=== PATIENT | female | born 2000 | race American Indian/Alaskan Native ===

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

== ENCOUNTER 2020-10-01 12:13 | Emergency (ER) | payer MEDICAID ==
[2020-10-01 12:31] VITALS: BP 128/66; PULSE 88
[2020-10-01] MEDS ORDERED: cefTRIAXone 500 MG, Lidocaine 1% 1 ML IM ONE ×2 (12:38)
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
== END 2020-10-01 12:57 | disposition home or self-care (01) ==
LOC: DL.ED 12:13
DX: O23.11 Infections of bladder in pregnancy, first trimester (principal); Z11.3 Encounter for screening for infections with a predominantly sexual mode of transmission; Z3A.01 Less than 8 weeks gestation of pregnancy
CPT/HCPCS: 81001; 81025; 87086; 87088; 87186; 87491; 87563; 87591; 96372; 99284; J0696

== ENCOUNTER 2020-12-06 02:36 | Emergency (ER) | payer MEDICAID ==
[2020-12-06 03:11] VITALS: BP 126/64; PULSE 99
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
== END 2020-12-06 03:15 | disposition left against medical advice (07) ==
LOC: DL.ED 02:36
DX: O20.9 Hemorrhage in early pregnancy, unspecified (principal); Z3A.19 19 weeks gestation of pregnancy; W01.0XXA Fall on same level from slipping, tripping and stumbling without subsequent striking against object, initial encounter
CPT/HCPCS: 99283

== ENCOUNTER 2021-04-12 10:43 | Inpatient (IN) | payer MEDICAID ==
[2021-04-12] MEDS ORDERED: Carboprost Tromethamine 250 MCG/1 ML Amp IM PRN ×2 (11:25→12:25)
[2021-04-12] MEDS ORDERED: Lidocaine 1% 30 ML SDV INJECT PRN (11:25)
[2021-04-12] MEDS ORDERED: Acetaminophen 325 MG Tab PO PRN ×2 (11:25→12:25)
[2021-04-12] MEDS ORDERED: Penicillin G Potassium 5 MILLUNITS in Sodium Chloride 0.9% 100 ML IV ONE (11:25)
[2021-04-12] MEDS ORDERED: Tranexamic Acid 1,000 MG in Sodium Chloride 0.9% 100 ML IV PRN ×2 (11:25→12:25)
[2021-04-12] MEDS ORDERED: fentaNYL 100 MCG/2 ML SDV IVPUSH PRN (11:25)
[2021-04-12] MEDS ORDERED: Sodium Chloride 0.9% 10 ML Syringe FLUSH PRN ×2 (11:25→12:25)
[2021-04-12] MEDS ORDERED: Misoprostol 400 MCG (4 X 100 MCG TAB) RECTAL PRN ×2 (11:25→12:25)
[2021-04-12] MEDS ORDERED: Butorphanol 2 MG/ML SDV IVPUSH PRN (11:25)
[2021-04-12] MEDS ORDERED: Ondansetron 4 MG/2 ML SDV IVPUSH PRN (11:25)
[2021-04-12] MEDS ORDERED: Methylergonovine 0.2 MG/1 ML Amp IM PRN (11:25)
[2021-04-12] MEDS ORDERED: Lactated Ringers 1,000 ML IV ONE (11:25)
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
[2021-04-12] MEDS ORDERED: Oxytocin/Normal Saline 30 UNIT/500 ML BAG IV SCH (11:30)
[2021-04-12] MEDS ORDERED: Ampicillin 2 GM in Sodium Chloride 0.9% 100 ML IV ONE (12:05)
[2021-04-12] MEDS ORDERED: Ampicillin 2 GM Vial ONE (12:15)
[2021-04-12] MEDS ORDERED: Simethicone 80 MG Tab.Chew PO PRN (12:25)
[2021-04-12] MEDS ORDERED: Benzocaine/Menthol 20%-0.5% Spray 78 GM Cannister TOP PRN (12:25)
[2021-04-12] MEDS ORDERED: Zolpidem 5 MG Tab PO PRN (12:25)
[2021-04-12 12:57] LABS: AMPHETAMINES,URINE POSITIVE (NEGATIVE); BARBITURATES,URINE NEGATIVE (NEGATIVE); BENZODIAZEPINE,URINE NEGATIVE (NEGATIVE); MDMA (ECSTASY), URINE POSITIVE (NEGATIVE); METHADONE,URINE NEGATIVE (NEGATIVE); METHAMPHETAMINES,URINE POSITIVE (NEGATIVE); OPIATES,URINE NEGATIVE (NEGATIVE); OXYCODONE,URINE NEGATIVE (NEGATIVE); PHENCYCLIDINE,URINE NEGATIVE (NEGATIVE); TCA,URINE NEGATIVE (NEGATIVE)
--- NOTE | 2021-04-12 13:46 | US ---
PROCEDURE INFORMATION: Exam: US , Limited Exam date and time: 04/12/2021 12:19 PM Age: 20 years old Clinical indication: Lmp or gestational age (in weeks): 36 wks, 0 days; Labor and delivery abnormalities; Pre-term labor; ; Additional info: Limited care TECHNIQUE: Imaging protocol: Real-time ultrasound of the maternal uterus with image documentation. Exam focused on the clinical indication. COMPARISON: No relevant prior studies available. FINDINGS: Gestation: Single live intrauterine gestation. presentation: Presentation is cephalic. heart rate: heart rate measures 146 bpm. BIOMETRY: Gestational age (AUA): Estimated gestational age 36 weeks based on today's measurements with an estimated due date of 05/10/2021. Previously determined estimated due date of 05/05/2021. There has been appropriate interval growth. Estimated weight: Estimated weight measures 2729 g/6 lb (26%). Biparietal diameter: 9.1 cm, 37 weeks 1 days Head circumference: 31.6 cm, 35 weeks 4 days Abdominal circumference: 31.5 cm, 35 weeks 3 days Femur length: 6.9 cm, 35 weeks 5 days IMPRESSION: Single live intrauterine gestation with a gestational age of 36 weeks based on today's measurements with an estimated due date of 05/10/2021. Previously determined estimated due date of 05/05/2021. There has been appropriate interval growth.
[2021-04-12] MEDS: Lactated Ringers 1,000 ML IV SCH ×2 (14:11→15:04)
[2021-04-12] MEDS ORDERED: Sodium Bicarbonate 4.2% 2.5 MEQ/5 ML SDV ONE ×2 (15:00→15:03)
[2021-04-12] MEDS ORDERED: EPINEPHrine 1 MG/ML SDV ONE ×2 (15:00→15:02)
[2021-04-12] MEDS ORDERED: fentaNYL 100 MCG/2 ML SDV ITHECAL ONE (15:00)
[2021-04-12] MEDS ORDERED: Sodium Chloride 0.9% 20 ML SDV ONE (15:00)
[2021-04-12] MEDS ORDERED: fentaNYL 100 MCG/2 ML SDV ONE (15:02)
--- NOTE | 2021-04-12 15:31 | PCM.SN.2 ---
- Free Text/Narrative Note: Intrathecal. Sitting position, sterile prep and drape. 1% lidocaine for skinwheal to L3 L4 interspace, introducer, 24 ga Pencan x 2. Pos CSF neg heme, neg parasthesia. 0.1 ml 1:1000 pf epi, 20 mcg pf sufenta, 30 mcg pf fentanyl, 0.4 ml pf NS and 6 mg of 0.75% pf Marcaine injected after CSF aspiration. Pt to L lateral position. Procedure time 1455 to 1530
[2021-04-12] MEDS ORDERED: Penicillin G Potassium 3 MILLUNITS in Sodium Chloride 0.9% 100 ML IV SCH (16:00)
[2021-04-12] MEDS: Ampicillin 1 GM in Sodium Chloride 0.9% 100 ML IV SCH ×2 (16:12→20:18)
--- NOTE | 2021-04-12 17:01 | PCM.DEL ---
<Margoth Wick - Last Filed: 04/12/21 18:36> L & D Note - General Info Date of Service: 04/12/21 Mother's Due Date: 05/05/21 - Delivery Note Labor: Spontaneous Delivery Outcome: Livebirth Infant Delivery Method: Spontaneous Vaginal Delivery-Single Presentation: Left Occiput Posterior (LOP) Nuchal Cord: None Anesthesia Type: Intrathecal, Nitrous Oxide Laceration: 1st Degree, Perineal, Periurethral Suture type: Vicryl Suture size: 4-0 Cord: 3 Vessels Estimated Blood Loss: 200 Resuscitation Needed: No Score 1 min: 8 Score 5 min: 8 Delivery Comments (Free Text/Narrative):: PRE-OPERATIVE DIAGNOSIS: 1. Intrauterine reported 36w5d 2. labor 3. No care 4. Group B streptococcus unknown with hx of positive POST-OPERATIVE DIAGNOSIS: 1. Intrauterine reported 36w5d 2. labor 3. No care 4. Group B streptococcus unknown with hx of positive 5. UDS postive for Methamphetamine/amphetamine, MDMA 6. First degree periurethral laceration, repaired PROCEDURE PERFORMED: Spontaneous vaginal delivery PHYSICIAN: Amos Johnson MD. Margoth Wick MD PGY3 ANESTHESIA: Nitrous oxide, intrathecal ESTIMATED BLOOD LOSS: 200MG FINDINGS: Male APGARs 8 / 8. Weight 2750g / 6lb 1oz Length 18.5in Chest 12.25in Head 12.5in Abdomen 12.5 in Cord sample send for Drug exposure testing SUMMARY OF EVENTS: Patient is a 20yo with no care who presented with SROM at 9:49AM. Amnisure positive, Rodriguez Hevia showed contractions q1-2 minutes. Cervical exam 3/50%/ -2. Patient was admitted and quickly reached complete dilation with Pitocin augmentation. She began pushing at 4:05PM. Delivered male infant in LO P/right shoulder anterior position at 4:21PM. Cord double clamped and cut by Dr. Johnson, crying was placed on mother abdomen. Cord clamped again and section taken for drug exposure testing. Cord blood collected and Pitocin initiated. Placenta delivered spontaneously and intact. 3 vessel cord confirmed. Vaginal mucosa inspected and first degree lacerations - two periurethral and a perineal identified. Lacerations repaired with 4-0 vicryl in figures of 8, urethra identified with straight catheter. Vaginal mucosa re-inspected, no other lacerations identified. Mother and stable at time of note. Margoth Wick MD PGY3 - General Info Date of Service: 04/12/21 - Patient Data Vitals - Most Recent: Last Vital Signs Temp Pulse 94 04/12/21 13:30 Resp BP 149/78 H 04/12/21 13:30 Pulse Ox Weight - Most Recent: 156 lb Lab Results Last 24 Hours: Laboratory Results - last 24 hr 04/12/21 04/12/21 04/12/21 Range/Units 11:16 11:40 11:55 WBC 10.2 H (5.0-10.0) 10^3/uL RBC 4.55 (4.2-5.4) 10^6/uL Hgb 9.2 L (12.0-16.0) g/dL Hct 30.9 L (37.0-47.0) % MCV 67.9 L D (80-100) fL MCH 20.2 L (27.0-34.0) pg MCHC 29.8 L (33.0-35.0) g/dL Plt Count 291 D (150-450) 10^3/uL Urine Color (YELLOW) Urine Appearance (CLEAR) Urine pH (5.0-9.0) Ur Specific [place] (1.005-1.030) Urine Protein (NEGATIVE) Urine Glucose (UA) (NEGATIVE) Urine Ketones (NEGATIVE) Urine Occult Blood (NEGATIVE) Urine Nitrite (NEGATIVE) Urine Bilirubin (NEGATIVE) Urine Urobilinogen (0.2-1.0) mg/dL Ur Leukocyte Esterase (NEGATIVE) Urine RBC (0-5) /HPF Urine WBC (0-5/HPF) /HPF Ur Epithelial Cells (NOT SEEN) /HPF Urine Bacteria (0-FEW/HPF) /HPF Membrane Rupture Positive (NEG) Urine Opiates Screen (NEGATIVE) Ur Oxycodone Screen (NEGATIVE) Urine Methadone Screen (NEGATIVE) Ur Barbiturates Screen (NEGATIVE) U Tricyclic Antidepress (NEGATIVE) Ur Phencyclidine Scrn (NEGATIVE) Ur Amphetamine Screen (NEGATIVE) U Methamphetamines Scrn (NEGATIVE) Urine MDMA Screen (NEGATIVE) U Benzodiazepines Scrn (NEGATIVE) Urine Cocaine Screen (NEGATIVE) U Marijuana (THC) Screen (NEGATIVE) HIV-1 Antibody (NONREACTIVE) HIV-2 Antibody (NONREACTIVE) HIV P24 Antigen (NONREACTIVE) SARS-CoV-2 RNA (CHRISTOPHER) Negative (NEGATIVE) Blood Type Gel Antibody Screen 04/12/21 04/12/21 04/12/21 Range/Units 11:55 11:55 12:20 WBC (5.0-10.0) 10^3/uL RBC (4.2-5.4) 10^6/uL Hgb (12.0-16.0) g/dL Hct (37.0-47.0) % MCV (80-100) fL MCH (27.0-34.0) pg MCHC (33.0-35.0) g/dL Plt Count (150-450) 10^3/uL Urine Color Dark yellow (YELLOW) Urine Appearance Slightly cloudy (CLEAR) Urine pH 6.5 (5.0-9.0) Ur Specific [place] >= 1.030 (1.005-1.030) Urine Protein 30 H (NEGATIVE) Urine Glucose (UA) Negative (NEGATIVE) Urine Ketones Negative (NEGATIVE) Urine Occult Blood Moderate H (NEGATIVE) Urine Nitrite Negative (NEGATIVE) Urine Bilirubin Negative (NEGATIVE) Urine Urobilinogen 0.2 (0.2-1.0) mg/dL Ur Leukocyte Esterase Small H (NEGATIVE) Urine RBC 75-100 H (0-5) /HPF Urine WBC 20-30 H (0-5/HPF) /HPF Ur Epithelial Cells Moderate H (NOT SEEN) /HPF Urine Bacteria Moderate H (0-FEW/HPF) /HPF Membrane Rupture (NEG) Urine Opiates Screen (NEGATIVE) Ur Oxycodone Screen (NEGATIVE) Urine Methadone Screen (NEGATIVE) Ur Barbiturates Screen (NEGATIVE) U Tricyclic Antidepress (NEGATIVE) Ur Phencyclidine Scrn (NEGATIVE) Ur Amphetamine Screen (NEGATIVE) U Methamphetamines Scrn (NEGATIVE) Urine MDMA Screen (NEGATIVE) U Benzodiazepines Scrn (NEGATIVE) Urine Cocaine Screen (NEGATIVE) U Marijuana (THC) Screen (NEGATIVE) HIV-1 Antibody Non-reactive (NONREACTIVE) HIV-2 Antibody Non-reactive (NONREACTIVE) HIV P24 Antigen Non-reactive (NONREACTIVE) SARS-CoV-2 RNA (CHRISTOPHER) (NEGATIVE) Blood Type O POSITIVE Gel Antibody Screen Negative 04/12/21 Range/Units 12:20 WBC (5.0-10.0) 10^3/uL RBC (4.2-5.4) 10^6/uL Hgb (12.0-16.0) g/dL Hct (37.0-47.0) % MCV (80-100) fL MCH (27.0-34.0) pg MCHC (33.0-35.0) g/dL Plt Count (150-450) 10^3/uL Urine Color (YELLOW) Urine Appearance (CLEAR) Urine pH (5.0-9.0) Ur Specific [place] (1.005-1.030) Urine Protein (NEGATIVE) Urine Glucose (UA) (NEGATIVE) Urine Ketones (NEGATIVE) Urine Occult Blood (NEGATIVE) Urine Nitrite (NEGATIVE) Urine Bilirubin (NEGATIVE) Urine Urobilinogen (0.2-1.0) mg/dL Ur Leukocyte Esterase (NEGATIVE) Urine RBC (0-5) /HPF Urine WBC (0-5/HPF) /HPF Ur Epithelial Cells (NOT SEEN) /HPF Urine Bacteria (0-FEW/HPF) /HPF Membrane Rupture (NEG) Urine Opiates Screen Negative (NEGATIVE) Ur Oxycodone Screen Negative (NEGATIVE) Urine Methadone Screen Negative (NEGATIVE) Ur Barbiturates Screen Negative (NEGATIVE) U Tricyclic Antidepress Negative (NEGATIVE) Ur Phencyclidine Scrn Negative (NEGATIVE) Ur Amphetamine Screen Positive H (NEGATIVE) U Methamphetamines Scrn Positive H (NEGATIVE) Urine MDMA Screen Positive H (NEGATIVE) U Benzodiazepines Scrn Negative (NEGATIVE) Urine Cocaine Screen Negative (NEGATIVE) U Marijuana (THC) Screen Negative (NEGATIVE) HIV-1 Antibody (NONREACTIVE) HIV-2 Antibody (NONREACTIVE) HIV P24 Antigen (NONREACTIVE) SARS-CoV-2 RNA (CHRISTOPHER) (NEGATIVE) Blood Type Gel Antibody Screen [place] Results Last 24 Hours: Microbiology 04/12/21 11:16 Wet Prep - Final Vagina Med Orders - Current: Current Medications Acetaminophen (Acetaminophen 325 Mg Tab) 650 mg PO Q6H PRN PRN Reason: Pain/Fever Benzocaine/Menthol (Benzocaine/Menthol 20%-0.5% [place] 78 Gm Cannister) 0 gm TOP Q4H PRN PRN Reason: Perineal comfort measures Butorphanol Tartrate (Butorphanol 2 Mg/Ml Sdv) 1 mg IVPUSH Q3H PRN PRN Reason: Pain Carboprost Tromethamine (Carboprost Tromethamine 250 Mcg/1 Ml Amp) 250 mcg IM ASDIRECTED PRN PRN Reason: HEMORRHAGE Carboprost Tromethamine (Carboprost Tromethamine 250 Mcg/1 Ml Amp) 250 mcg IM ASDIRECTED PRN PRN Reason: Excessive vaginal bleeding Docusate Sodium (Docusate Sodium 100 Mg Cap) 100 mg PO BID PRN PRN Reason: Constipation Fentanyl (Fentanyl 100 Mcg/2 Ml Sdv) 100 mcg IVPUSH Q1H PRN PRN Reason: Pain (moderate 4-6) Ferrous Sulfate (Ferrous Sulfate 325 Mg Tab) 325 mg PO TIDMEALS [facility] Lactated Ringer's (Ringers, Lactated) 1,000 mls @ 125 mls/hr IV BOLUS ONE Stop: 04/12/21 19:24 Last Admin: 04/12/21 12:39 Dose: 500 mls/hr Documented by: Lactated Ringer's (Ringers, Lactated) 1,000 mls @ 125 mls/hr IV ASDIRECTED [facility] Last Admin: 04/12/21 15:04 Dose: 125 mls/hr Documented by: Tranexamic Acid 1,000 mg/ (Sodium Chloride) 110 mls @ 660 mls/hr IV ONETIME PRN PRN Reason: Bleeding Oxytocin/Sodium Chloride (Pitocin In Ns 30 Unit/500 Ml) 30 unit in 500 mls @ 2 mls/hr IV TITRATE [facility]; Protocol Last Titration: 04/12/21 16:20 Dose: 500 munits/min, 500 mls/hr Documented by: Ampicillin Sodium 1 gm/ Sodium (Chloride) 100 mls @ 200 mls/hr IV Q4H [facility] Last Admin: 04/12/21 16:12 Dose: 200 mls/hr Documented by: Ibuprofen (Ibuprofen 800 Mg Tab) 800 mg PO Q8H PRN PRN Reason: Cramping Lidocaine HCl (Lidocaine 1% 30 Ml Sdv) 30 ml INJECT ASDIRECTED PRN PRN Reason: Perineal Repair Methylergonovine Maleate (Methylergonovine 0.2 Mg/1 Ml Amp) 0.2 mg IM ASDIRECTED PRN PRN Reason: Hemorrhage Misoprostol (Misoprostol 400 Mcg (4 X 100 Mcg Tab)) 800 mcg RECTAL ASDIRECTED PRN PRN Reason: Hemorrhage Misoprostol (Misoprostol 400 Mcg (4 X 100 Mcg Tab)) 800 mcg RECTAL ONETIME PRN PRN Reason: Hemorrhage Ondansetron HCl (Ondansetron 4 Mg/2 Ml Sdv) 4 mg IVPUSH Q4H PRN PRN Reason: Nausea/Vomiting Last Admin: 04/12/21 15:04 Dose: 4 mg Documented by: Sendy Multivit/Gluer And Wedger/Iron/Folic Ac ( Multivitamin With Calcium/Folic Acid/Iron Tab) 1 each PO DAILY [place] Simethicone (Simethicone 80 Mg Tab.Chew) 80 mg PO Q4H PRN PRN Reason: Gas Sodium Chloride (Sodium Chloride 0.9% 10 Ml Syringe) 10 ml FLUSH ASDIRECTED PRN PRN Reason: Keep Vein Open Sodium Chloride (Sodium Chloride 0.9% 10 Ml Syringe) 10 ml FLUSH ASDIRECTED PRN PRN Reason: Keep Vein Open Zolpidem Tartrate (Zolpidem 5 Mg Tab) 5 mg PO BEDTIME PRN PRN Reason: Insomnia Discontinued Medications Acetaminophen (Acetaminophen 325 Mg Tab) 650 mg PO Q4H PRN PRN Reason: Pain (Mild 1-3) and fever Ampicillin Sodium (Ampicillin 2 Gm Vial) Confirm Administered Dose 2 gm .ROUTE .STK-MED ONE Stop: 04/12/21 12:16 Last Admin: 04/12/21 16:13 Dose: Not Given Documented by: Epinephrine HCl (Epinephrine 1 Mg/Ml Sdv) Confirm Administered Dose 1 mg .ROUTE .STK-MED ONE Stop: 04/12/21 15:03 Fentanyl (Fentanyl 100 Mcg/2 Ml Sdv) Confirm Administered Dose 100 mcg .ROUTE .STK-MED ONE Stop: 04/12/21 15:03 Penicillin G Potassium 5 (millunits/ Sodium Chloride) 100 mls @ 200 mls/hr IV ONETIME ONE Stop: 04/12/21 11:54 Last Admin: 04/12/21 15:47 Dose: Not Given Documented by: Penicillin G Potassium 3 (millunits/ Sodium Chloride) 100 mls @ 200 mls/hr IV Q4H [facility] Ampicillin Sodium 2 gm/ Sodium (Chloride) 100 mls @ 200 mls/hr IV ONETIME ONE Stop: 04/12/21 12:34 Last Admin: 04/12/21 12:39 Dose: 200 mls/hr Documented by: Tranexamic Acid 1,000 mg/ (Sodium Chloride) 110 mls @ 660 mls/hr IV ONETIME PRN PRN Reason: Bleeding Prenat Multivit/Emsworth/Iron/Folic Ac ( Multivitamin With Calcium/Folic Acid/Iron Tab) 1 each PO DAILY [facility] Sodium Bicarbonate (Sodium Bicarbonate 4.2% 2.5 Meq/5 Ml Sdv) Confirm Administered Dose 2.5 meq .ROUTE .STK-MED ONE Stop: 04/12/21 15:04 Sufentanil Citrate (Sufentanil 50 Mcg/1 Ml Amp) Confirm Administered Dose 50 mcg .ROUTE .STK-MED ONE Stop: 04/12/21 15:03 - Problem List & Annotations (1) labor in third trimester SNOMED Code(s): 8670633 Code(s): O60.03 - LABOR WITHOUT DELIVERY, THIRD TRIMESTER Status: Acute Current Visit: Yes (2) No care in current in third trimester SNOMED Code(s): 099133992, 146281659 Code(s): O09.33 - SUPRVSN OF PREG W INSUFFICIENT ANTENAT CARE, THIRD TRIMESTER Status: Acute Current Visit: Yes (3) Screening for STD (sexually transmitted disease) Status: Acute Current Visit: No - Problem List Review Problem List Initiated/Reviewed/Updated: No - My Orders Last 24 Hours: My Active Orders 04/12/21 16:00 Ampicillin 1 gm Sodium Chloride 0.9% [Normal Saline AdvBag] 100 ml IV Q4H 04/12/21 16:59 DRUG SCR 10 W REF CONF SERUM [REF] Urgent <Amos Johnson - Last Filed: 04/13/21 03:40> - Patient Data Vitals - Most Recent: Last Vital Signs Temp 98.6 F 04/12/21 20:00 Pulse 84 04/12/21 20:58 Resp 16 04/12/21 20:58 BP 143/84 H 04/12/21 20:58 Pulse Ox I&O - Last 24 Hours: Intake & Output 04/12/21 04/12/21 04/13/21 14:59 22:59 06:59 Output Total 450 Balance -450 Lab Results Last 24 Hours: Laboratory Results - last 24 hr 04/12/21 04/12/21 04/12/21 Range/Units 11:16 11:40 11:55 WBC 10.2 H (5.0-10.0) 10^3/uL RBC 4.55 (4.2-5.4) 10^6/uL Hgb 9.2 L (12.0-16.0) g/dL Hct 30.9 L (37.0-47.0) % MCV 67.9 L D (80-100) fL MCH 20.2 L (27.0-34.0) pg MCHC 29.8 L (33.0-35.0) g/dL Plt Count 291 D (150-450) 10^3/uL Urine Color (YELLOW) Urine Appearance (CLEAR) Urine pH (5.0-9.0) Ur Specific B[place] (1.005-1.030) Urine Protein (NEGATIVE) Urine Glucose (UA) (NEGATIVE) Urine Ketones (NEGATIVE) Urine Occult Blood (NEGATIVE) Urine Nitrite (NEGATIVE) Urine Bilirubin (NEGATIVE) Urine Urobilinogen (0.2-1.0) mg/dL Ur Leukocyte Esterase (NEGATIVE) Urine RBC (0-5) /HPF Urine WBC (0-5/HPF) /HPF Ur Epithelial Cells (NOT SEEN) /HPF Urine Bacteria (0-FEW/HPF) /HPF Membrane Rupture Positive (NEG) Urine Opiates Screen (NEGATIVE) Ur Oxycodone Screen (NEGATIVE) Urine Methadone Screen (NEGATIVE) Ur Barbiturates Screen (NEGATIVE) U Tricyclic Antidepress (NEGATIVE) Ur Phencyclidine Scrn (NEGATIVE) Ur Amphetamine Screen (NEGATIVE) U Methamphetamines Scrn (NEGATIVE) Urine MDMA Screen (NEGATIVE) U Benzodiazepines Scrn (NEGATIVE) Urine Cocaine Screen (NEGATIVE) U Marijuana (THC) Screen (NEGATIVE) HIV-1 Antibody (NONREACTIVE) HIV-2 Antibody (NONREACTIVE) HIV P24 Antigen (NONREACTIVE) SARS-CoV-2 RNA (CHRISTOPHER) Negative (NEGATIVE) Blood Type Gel Antibody Screen 04/12/21 04/12/21 04/12/21 Range/Units 11:55 11:55 12:20 WBC (5.0-10.0) 10^3/uL RBC (4.2-5.4) 10^6/uL Hgb (12.0-16.0) g/dL Hct (37.0-47.0) % MCV (80-100) fL MCH (27.0-34.0) pg MCHC (33.0-35.0) g/dL Plt Count (150-450) 10^3/uL Urine Color Dark yellow (YELLOW) Urine Appearance Slightly cloudy (CLEAR) Urine pH 6.5 (5.0-9.0) Ur Specific [place] >= 1.030 (1.005-1.030) Urine Protein 30 H (NEGATIVE) Urine Glucose (UA) Negative (NEGATIVE) Urine Ketones Negative (NEGATIVE) Urine Occult Blood Moderate H (NEGATIVE) Urine Nitrite Negative (NEGATIVE) Urine Bilirubin Negative (NEGATIVE) Urine Urobilinogen 0.2 (0.2-1.0) mg/dL Ur Leukocyte Esterase Small H (NEGATIVE) Urine RBC 75-100 H (0-5) /HPF Urine WBC 20-30 H (0-5/HPF) /HPF Ur Epithelial Cells Moderate H (NOT SEEN) /HPF Urine Bacteria Moderate H (0-FEW/HPF) /HPF Membrane Rupture (NEG) Urine Opiates Screen (NEGATIVE) Ur Oxycodone Screen (NEGATIVE) Urine Methadone Screen (NEGATIVE) Ur Barbiturates Screen (NEGATIVE) U Tricyclic Antidepress (NEGATIVE) Ur Phencyclidine Scrn (NEGATIVE) Ur Amphetamine Screen (NEGATIVE) U Methamphetamines Scrn (NEGATIVE) Urine MDMA Screen (NEGATIVE) U Benzodiazepines Scrn (NEGATIVE) Urine Cocaine Screen (NEGATIVE) U Marijuana (THC) Screen (NEGATIVE) HIV-1 Antibody Non-reactive (NONREACTIVE) HIV-2 Antibody Non-reactive (NONREACTIVE) HIV P24 Antigen Non-reactive (NONREACTIVE) SARS-CoV-2 RNA (CHRISTOPHER) (NEGATIVE) Blood Type O POSITIVE Gel Antibody Screen Negative 04/12/21 Range/Units 12:20 WBC (5.0-10.0) 10^3/uL RBC (4.2-5.4) 10^6/uL Hgb (12.0-16.0) g/dL Hct (37.0-47.0) % MCV (80-100) fL MCH (27.0-34.0) pg MCHC (33.0-35.0) g/dL Plt Count (150-450) 10^3/uL Urine Color (YELLOW) Urine Appearance (CLEAR) Urine pH (5.0-9.0) Ur Specific [place] (1.005-1.030) Urine Protein (NEGATIVE) Urine Glucose (UA) (NEGATIVE) Urine Ketones (NEGATIVE) Urine Occult Blood (NEGATIVE) Urine Nitrite (NEGATIVE) Urine Bilirubin (NEGATIVE) Urine Urobilinogen (0.2-1.0) mg/dL Ur Leukocyte Esterase (NEGATIVE) Urine RBC (0-5) /HPF Urine WBC (0-5/HPF) /HPF Ur Epithelial Cells (NOT SEEN) /HPF Urine Bacteria (0-FEW/HPF) /HPF Membrane Rupture (NEG) Urine Opiates Screen Negative (NEGATIVE) Ur Oxycodone Screen Negative (NEGATIVE) Urine Methadone Screen Negative (NEGATIVE) Ur Barbiturates Screen Negative (NEGATIVE) U Tricyclic Antidepress Negative (NEGATIVE) Ur Phencyclidine Scrn Negative (NEGATIVE) Ur Amphetamine Screen Positive H (NEGATIVE) U Methamphetamines Scrn Positive H (NEGATIVE) Urine MDMA Screen Positive H (NEGATIVE) U Benzodiazepines Scrn Negative (NEGATIVE) Urine Cocaine Screen Negative (NEGATIVE) U Marijuana (THC) Screen Negative (NEGATIVE) HIV-1 Antibody (NONREACTIVE) HIV-2 Antibody (NONREACTIVE) HIV P24 Antigen (NONREACTIVE) SARS-CoV-2 RNA (CHRISTOPHER) (NEGATIVE) Blood Type Gel Antibody Screen [place] Results Last 24 Hours: Microbiology 04/12/21 11:16 Wet Prep - Final Vagina Med Orders - Current: Current Medications Acetaminophen (Acetaminophen 325 Mg Tab) 650 mg PO Q6H PRN PRN Reason: Pain/Fever Benzocaine/Menthol (Benzocaine/Menthol 20%-0.5% [place] 78 Gm Cannister) 0 gm TOP Q4H PRN PRN Reason: Perineal comfort measures Butorphanol Tartrate (Butorphanol 2 Mg/Ml Sdv) 1 mg IVPUSH Q3H PRN PRN Reason: Pain Carboprost Tromethamine (Carboprost Tromethamine 250 Mcg/1 Ml Amp) 250 mcg IM ASDIRECTED PRN PRN Reason: HEMORRHAGE Carboprost Tromethamine (Carboprost Tromethamine 250 Mcg/1 Ml Amp) 250 mcg IM ASDIRECTED PRN PRN Reason: Excessive vaginal bleeding Docusate Sodium (Docusate Sodium 100 Mg Cap) 100 mg PO BID PRN PRN Reason: Constipation Fentanyl (Fentanyl 100 Mcg/2 Ml Sdv) 100 mcg IVPUSH Q1H PRN PRN Reason: Pain (moderate 4-6) Ferrous Sulfate (Ferrous Sulfate 325 Mg Tab) 325 mg PO TIDMEALS [facility] Last Admin: 04/12/21 20:31 Dose: Not Given Documented by: Lactated Ringer's (Ringers, Lactated) 1,000 mls @ 125 mls/hr IV ASDIRECTED [facility] Last Admin: 04/12/21 15:04 Dose: 125 mls/hr Documented by: Tranexamic Acid 1,000 mg/ (Sodium Chloride) 110 mls @ 660 mls/hr IV ONETIME PRN PRN Reason: Bleeding Oxytocin/Sodium Chloride (Pitocin In Ns 30 Unit/500 Ml) 30 unit in 500 mls @ 2 mls/hr IV TITRATE [facility]; Protocol Last Titration: 04/12/21 19:30 Dose: Infused Documented by: Ibuprofen (Ibuprofen 800 Mg Tab) 800 mg PO Q8H PRN PRN Reason: Cramping Last Admin: 04/12/21 20:50 Dose: 800 mg Documented by: Lidocaine HCl (Lidocaine 1% 30 Ml Sdv) 30 ml INJECT ASDIRECTED PRN PRN Reason: Perineal Repair Methylergonovine Maleate (Methylergonovine 0.2 Mg/1 Ml Amp) 0.2 mg IM ASDIRECTED PRN PRN Reason: Hemorrhage Misoprostol (Misoprostol 400 Mcg (4 X 100 Mcg Tab)) 800 mcg RECTAL ASDIRECTED PRN PRN Reason: Hemorrhage Misoprostol (Misoprostol 400 Mcg (4 X 100 Mcg Tab)) 800 mcg RECTAL ONETIME PRN PRN Reason: Hemorrhage Ondansetron HCl (Ondansetron 4 Mg/2 Ml Sdv) 4 mg IVPUSH Q4H PRN PRN Reason: Nausea/Vomiting Last Admin: 04/12/21 15:04 Dose: 4 mg Documented by: Prenat Multivit/Emsworth/Iron/Folic Ac ( Multivitamin With Calcium/Folic Acid/Iron Tab) 1 each PO DAILY [facility] Simethicone (Simethicone 80 Mg Tab.Chew) 80 mg PO Q4H PRN PRN Reason: Gas Sodium Chloride (Sodium Chloride 0.9% 10 Ml Syringe) 10 ml FLUSH ASDIRECTED PRN PRN Reason: Keep Vein Open Sodium Chloride (Sodium Chloride 0.9% 10 Ml Syringe) 10 ml FLUSH ASDIRECTED PRN PRN Reason: Keep Vein Open Zolpidem Tartrate (Zolpidem 5 Mg Tab) 5 mg PO BEDTIME PRN PRN Reason: Insomnia Discontinued Medications Acetaminophen (Acetaminophen 325 Mg Tab) 650 mg PO Q4H PRN PRN Reason: Pain (Mild 1-3) and fever Ampicillin Sodium (Ampicillin 2 Gm Vial) Confirm Administered Dose 2 gm .ROUTE .STK-MED ONE Stop: 04/12/21 12:16 Last Admin: 04/12/21 16:13 Dose: Not Given Documented by: Epinephrine HCl (Epinephrine 1 Mg/Ml Sdv) Confirm Administered Dose 1 mg .ROUTE .STK-MED ONE Stop: 04/12/21 15:03 Last Admin: 04/12/21 20:16 Dose: Not Given Documented by: Fentanyl (Fentanyl 100 Mcg/2 Ml Sdv) Confirm Administered Dose 100 mcg .ROUTE .STK-MED ONE Stop: 04/12/21 15:03 Last Admin: 04/12/21 20:16 Dose: Not Given Documented by: Lactated Ringer's (Ringers, Lactated) 1,000 mls @ 125 mls/hr IV BOLUS ONE Stop: 04/12/21 19:24 Last Admin: 04/12/21 12:39 Dose: 500 mls/hr Documented by: Penicillin G Potassium 5 (millunits/ Sodium Chloride) 100 mls @ 200 mls/hr IV ONETIME ONE Stop: 04/12/21 11:54 Last Admin: 04/12/21 15:47 Dose: Not Given Documented by: Penicillin G Potassium 3 (millunits/ Sodium Chloride) 100 mls @ 200 mls/hr IV Q4H [facility] Ampicillin Sodium 2 gm/ Sodium (Chloride) 100 mls @ 200 mls/hr IV ONETIME ONE Stop: 04/12/21 12:34 Last Admin: 04/12/21 12:39 Dose: 200 mls/hr Documented by: Ampicillin Sodium 1 gm/ Sodium (Chloride) 100 mls @ 200 mls/hr IV Q4H [facility] Last Admin: 04/12/21 20:18 Dose: Not Given Documented by: Tranexamic Acid 1,000 mg/ (Sodium Chloride) 110 mls @ 660 mls/hr IV ONETIME PRN PRN Reason: Bleeding Prenat Multivit/Emsworth/Iron/Folic Ac ( Multivitamin With Calcium/Folic Acid/Iron Tab) 1 each PO DAILY [facility] Sodium Bicarbonate (Sodium Bicarbonate 4.2% 2.5 Meq/5 Ml Sdv) Confirm Administered Dose 2.5 meq .ROUTE .STK-MED ONE Stop: 04/12/21 15:04 Last Admin: 04/12/21 20:17 Dose: Not Given Documented by: Sufentanil Citrate (Sufentanil 50 Mcg/1 Ml Amp) Confirm Administered Dose 50 mcg .ROUTE .STK-MED ONE Stop: 04/12/21 15:03 Last Admin: 04/12/21 20:16 Dose: Not Given Documented by: - My Orders Last 24 Hours: My Active Orders 04/12/21 Breakfast Regular Diet [DIET] 04/12/21 11:06 OB Check [OM.PC] Click To Edit 04/12/21 11:16 CHLAMYDIA AND GONORRHEA BY TMA Routine CULTURE GROUP B STREP [RM] Routine 04/12/21 11:25 Patient Status [ADT] Routine Communication Order [RC] ASDIRECTED Notify Provider Vital Signs OB [RC] ASDIRECTED Notify Provider [RC] PRN Vital Signs [RC] 08,20 Butorphanol [Stadol] 1 mg IVPUSH Q3H PRN Carboprost Tromethamine [Hemabate DS] 250 mcg IM ASDIRECTED PRN Lidocaine 1% [Xylocaine-MPF 1%] 30 ml INJECT ASDIRECTED PRN Methylergonovine [Methergine] 0.2 mg IM ASDIRECTED PRN Ondansetron [Zofran] 4 mg IVPUSH Q4H PRN Sodium Chloride 0.9% [Saline Flush] 10 ml FLUSH ASDIRECTED PRN Tranexamic Acid [Cyklokapron] 1,000 mg Sodium Chloride 0.9% [Normal Saline] 100 ml IV ONETIME fentaNYL [Sublimaze] 100 mcg IVPUSH Q1H PRN miSOPROStoL [Cytotec] 800 mcg RECTAL ASDIRECTED PRN Saline Lock Insert [OM.PC] Routine Resuscitation Status Routine 04/12/21 11:30 Lactated Ringers [Ringers, Lactated] 1,000 ml IV ASDIRECTED Oxytocin/Normal Saline [Pitocin in NS 30 UNIT/500 ML] 30 unit in 500 ml IV T ITRATE 04/12/21 11:55 HBSAG SCREEN [REF] Urgent HEP C VIRUS AB [REF] Urgent RPR (SYPHILIS SERO) W/ RFLX [REF] Routine RUBELLA ANTIBODY, IGG [REF] Routine 04/12/21 Lunch Regular Diet [DIET] 04/12/21 12:20 CULTURE URINE [RM] Routine TRAMADOL, SCREEN ONLY, UR Routine 04/12/21 12:25 Acetaminophen [TylenoL] 650 mg PO Q6H PRN Benzocaine/Menthol [Dermoplast Pain Relief 20%-0.5% [place]] See Dose Instructions TOP Q4H PRN Carboprost Tromethamine [Hemabate DS] 250 mcg IM ASDIRECTED PRN Docusate Sodium [Colace] 100 mg PO BID PRN Ibuprofen [Motrin] 800 mg PO Q8H PRN Simethicone 80 mg PO Q4H PRN Sodium Chloride 0.9% [Saline Flush] 10 ml FLUSH ASDIRECTED PRN Zolpidem [Ambien] 5 mg PO BEDTIME PRN miSOPROStoL [Cytotec] 800 mcg RECTAL ONETIME PRN 04/12/21 12:26 Up ad [place] [RC] ASDIRECTED Assess Lochia [WOMSER] Per Unit Routine Assess Uterine Involution [WOMSER] Per Unit Routine Breast Pump [WOMSER] Per Unit Routine Ice Therapy [OM.PC] Per Unit Routine Perineal Care [OM.PC] Per Unit Routine Saline Lock Insert [OM.PC] Urgent Sitz Bath [OM.PC] Per Unit Routine 04/12/21 17:00 Ferrous Sulfate 325 mg PO TIDMEALS 04/12/21 Dinner Regular Diet [DIET] 04/13/21 05:11 CBC W/O DIFF,HEMOGRAM [HEME] AM 04/13/21 09:00 Vit with Ca/FA/Iron [ Plus Iron] 1 each PO DAILY Attestation - Resident - Attestation Statement Attestation Statement: I saw and evaluated the patient. Discussed with resident and agree with residents findings and plan as documented in the residents note.
[2021-04-12] MEDS: Ferrous Sulfate 325 MG Tab PO SCH (20:31)
[2021-04-12] MEDS: Ibuprofen 800 MG Tab PO PRN (20:50)
--- NOTE | 2021-04-13 03:46 | PCM.PNPP ---
- General Info Date of Service: 04/13/21 (PPD # 1 S/P ) Functional Status: Reports: Pain Controlled, Tolerating Diet - Review of Systems General: Reports: No Symptoms HEENT: Reports: No Symptoms Pulmonary: Reports: No Symptoms Cardiovascular: Reports: No Symptoms Gastrointestinal: Reports: No Symptoms Genitourinary: Reports: No Symptoms, Retention (Had to empty bladder with catheter no urge to urinate) Musculoskeletal: Reports: No Symptoms Skin: Reports: No Symptoms Neurological: Reports: No Symptoms Psychiatric: Reports: No Symptoms - General Info Date of Service: 04/13/21 (PPD # 1 S/P ) - Patient Data Vital Signs - Most Recent: Last Vital Signs Temp 98.6 F 04/12/21 20:00 Pulse 84 04/12/21 20:58 Resp 16 04/12/21 20:58 BP 143/84 H 04/12/21 20:58 Pulse Ox Weight - Most Recent: 156 lb I&O - Last 24 Hours: Intake & Output 04/12/21 04/12/21 04/13/21 14:59 22:59 06:59 Output Total 450 Balance -450 Lab Results - Last 24 Hours: Laboratory Results - last 24 hr 04/12/21 04/12/21 04/12/21 Range/Units 11:16 11:40 11:55 WBC 10.2 H (5.0-10.0) 10^3/uL RBC 4.55 (4.2-5.4) 10^6/uL Hgb 9.2 L (12.0-16.0) g/dL Hct 30.9 L (37.0-47.0) % MCV 67.9 L D (80-100) fL MCH 20.2 L (27.0-34.0) pg MCHC 29.8 L (33.0-35.0) g/dL Plt Count 291 D (150-450) 10^3/uL Urine Color (YELLOW) Urine Appearance (CLEAR) Urine pH (5.0-9.0) Ur Specific [place] (1.005-1.030) Urine Protein (NEGATIVE) Urine Glucose (UA) (NEGATIVE) Urine Ketones (NEGATIVE) Urine Occult Blood (NEGATIVE) Urine Nitrite (NEGATIVE) Urine Bilirubin (NEGATIVE) Urine Urobilinogen (0.2-1.0) mg/dL Ur Leukocyte Esterase (NEGATIVE) Urine RBC (0-5) /HPF Urine WBC (0-5/HPF) /HPF Ur Epithelial Cells (NOT SEEN) /HPF Urine Bacteria (0-FEW/HPF) /HPF Membrane Rupture Positive (NEG) Urine Opiates Screen (NEGATIVE) Ur Oxycodone Screen (NEGATIVE) Urine Methadone Screen (NEGATIVE) Ur Barbiturates Screen (NEGATIVE) U Tricyclic Antidepress (NEGATIVE) Ur Phencyclidine Scrn (NEGATIVE) Ur Amphetamine Screen (NEGATIVE) U Methamphetamines Scrn (NEGATIVE) Urine MDMA Screen (NEGATIVE) U Benzodiazepines Scrn (NEGATIVE) Urine Cocaine Screen (NEGATIVE) U Marijuana (THC) Screen (NEGATIVE) HIV-1 Antibody (NONREACTIVE) HIV-2 Antibody (NONREACTIVE) HIV P24 Antigen (NONREACTIVE) SARS-CoV-2 RNA (CHRISTOPHER) Negative (NEGATIVE) Blood Type Gel Antibody Screen 04/12/21 04/12/21 04/12/21 Range/Units 11:55 11:55 12:20 WBC (5.0-10.0) 10^3/uL RBC (4.2-5.4) 10^6/uL Hgb (12.0-16.0) g/dL Hct (37.0-47.0) % MCV (80-100) fL MCH (27.0-34.0) pg MCHC (33.0-35.0) g/dL Plt Count (150-450) 10^3/uL Urine Color Dark yellow (YELLOW) Urine Appearance Slightly cloudy (CLEAR) Urine pH 6.5 (5.0-9.0) Ur Specific [place] >= 1.030 (1.005-1.030) Urine Protein 30 H (NEGATIVE) Urine Glucose (UA) Negative (NEGATIVE) Urine Ketones Negative (NEGATIVE) Urine Occult Blood Moderate H (NEGATIVE) Urine Nitrite Negative (NEGATIVE) Urine Bilirubin Negative (NEGATIVE) Urine Urobilinogen 0.2 (0.2-1.0) mg/dL Ur Leukocyte Esterase Small H (NEGATIVE) Urine RBC 75-100 H (0-5) /HPF Urine WBC 20-30 H (0-5/HPF) /HPF Ur Epithelial Cells Moderate H (NOT SEEN) /HPF Urine Bacteria Moderate H (0-FEW/HPF) /HPF Membrane Rupture (NEG) Urine Opiates Screen (NEGATIVE) Ur Oxycodone Screen (NEGATIVE) Urine Methadone Screen (NEGATIVE) Ur Barbiturates Screen (NEGATIVE) U Tricyclic Antidepress (NEGATIVE) Ur Phencyclidine Scrn (NEGATIVE) Ur Amphetamine Screen (NEGATIVE) U Methamphetamines Scrn (NEGATIVE) Urine MDMA Screen (NEGATIVE) U Benzodiazepines Scrn (NEGATIVE) Urine Cocaine Screen (NEGATIVE) U Marijuana (THC) Screen (NEGATIVE) HIV-1 Antibody Non-reactive (NONREACTIVE) HIV-2 Antibody Non-reactive (NONREACTIVE) HIV P24 Antigen Non-reactive (NONREACTIVE) SARS-CoV-2 RNA (CHRISTOPHER) (NEGATIVE) Blood Type O POSITIVE Gel Antibody Screen Negative 04/12/21 Range/Units 12:20 WBC (5.0-10.0) 10^3/uL RBC (4.2-5.4) 10^6/uL Hgb (12.0-16.0) g/dL Hct (37.0-47.0) % MCV (80-100) fL MCH (27.0-34.0) pg MCHC (33.0-35.0) g/dL Plt Count (150-450) 10^3/uL Urine Color (YELLOW) Urine Appearance (CLEAR) Urine pH (5.0-9.0) Ur Specific [place] (1.005-1.030) Urine Protein (NEGATIVE) Urine Glucose (UA) (NEGATIVE) Urine Ketones (NEGATIVE) Urine Occult Blood (NEGATIVE) Urine Nitrite (NEGATIVE) Urine Bilirubin (NEGATIVE) Urine Urobilinogen (0.2-1.0) mg/dL Ur Leukocyte Esterase (NEGATIVE) Urine RBC (0-5) /HPF Urine WBC (0-5/HPF) /HPF Ur Epithelial Cells (NOT SEEN) /HPF Urine Bacteria (0-FEW/HPF) /HPF Membrane Rupture (NEG) Urine Opiates Screen Negative (NEGATIVE) Ur Oxycodone Screen Negative (NEGATIVE) Urine Methadone Screen Negative (NEGATIVE) Ur Barbiturates Screen Negative (NEGATIVE) U Tricyclic Antidepress Negative (NEGATIVE) Ur Phencyclidine Scrn Negative (NEGATIVE) Ur Amphetamine Screen Positive H (NEGATIVE) U Methamphetamines Scrn Positive H (NEGATIVE) Urine MDMA Screen Positive H (NEGATIVE) U Benzodiazepines Scrn Negative (NEGATIVE) Urine Cocaine Screen Negative (NEGATIVE) U Marijuana (THC) Screen Negative (NEGATIVE) HIV-1 Antibody (NONREACTIVE) HIV-2 Antibody (NONREACTIVE) HIV P24 Antigen (NONREACTIVE) SARS-CoV-2 RNA (CHRISTOPHER) (NEGATIVE) Blood Type Gel Antibody Screen Micro Results - Last 24 Hours: Microbiology 04/12/21 11:16 Wet Prep - Final Vagina Med Orders - Current: Current Medications Acetaminophen (Acetaminophen 325 Mg Tab) 650 mg PO Q6H PRN PRN Reason: Pain/Fever Benzocaine/Menthol (Benzocaine/Menthol 20%-0.5% [place] 78 Gm Cannister) 0 gm TOP Q4H PRN PRN Reason: Perineal comfort measures Butorphanol Tartrate (Butorphanol 2 Mg/Ml Sdv) 1 mg IVPUSH Q3H PRN PRN Reason: Pain Carboprost Tromethamine (Carboprost Tromethamine 250 Mcg/1 Ml Amp) 250 mcg IM ASDIRECTED PRN PRN Reason: HEMORRHAGE Carboprost Tromethamine (Carboprost Tromethamine 250 Mcg/1 Ml Amp) 250 mcg IM ASDIRECTED PRN PRN Reason: Excessive vaginal bleeding Docusate Sodium (Docusate Sodium 100 Mg Cap) 100 mg PO BID PRN PRN Reason: Constipation Fentanyl (Fentanyl 100 Mcg/2 Ml Sdv) 100 mcg IVPUSH Q1H PRN PRN Reason: Pain (moderate 4-6) Ferrous Sulfate (Ferrous Sulfate 325 Mg Tab) 325 mg PO TIDMEALS [facility] Last Admin: 04/12/21 20:31 Dose: Not Given Documented by: Lactated Ringer's (Ringers, Lactated) 1,000 mls @ 125 mls/hr IV ASDIRECTED [facility] Last Admin: 04/12/21 15:04 Dose: 125 mls/hr Documented by: Tranexamic Acid 1,000 mg/ (Sodium Chloride) 110 mls @ 660 mls/hr IV ONETIME PRN PRN Reason: Bleeding Oxytocin/Sodium Chloride (Pitocin In Ns 30 Unit/500 Ml) 30 unit in 500 mls @ 2 mls/hr IV TITRATE [facility]; Protocol Last Titration: 04/12/21 19:30 Dose: Infused Documented by: Ibuprofen (Ibuprofen 800 Mg Tab) 800 mg PO Q8H PRN PRN Reason: Cramping Last Admin: 04/12/21 20:50 Dose: 800 mg Documented by: Lidocaine HCl (Lidocaine 1% 30 Ml Sdv) 30 ml INJECT ASDIRECTED PRN PRN Reason: Perineal Repair Methylergonovine Maleate (Methylergonovine 0.2 Mg/1 Ml Amp) 0.2 mg IM ASDIRECTED PRN PRN Reason: Hemorrhage Misoprostol (Misoprostol 400 Mcg (4 X 100 Mcg Tab)) 800 mcg RECTAL ASDIRECTED PRN PRN Reason: Hemorrhage Misoprostol (Misoprostol 400 Mcg (4 X 100 Mcg Tab)) 800 mcg RECTAL ONETIME PRN PRN Reason: Hemorrhage Ondansetron HCl (Ondansetron 4 Mg/2 Ml Sdv) 4 mg IVPUSH Q4H PRN PRN Reason: Nausea/Vomiting Last Admin: 04/12/21 15:04 Dose: 4 mg Documented by: Prenat Multivit/[place]/Iron/Folic Ac ( Multivitamin With Calcium/Folic Acid/Iron Tab) 1 each PO DAILY [place] Simethicone (Simethicone 80 Mg Tab.Chew) 80 mg PO Q4H PRN PRN Reason: Gas Sodium Chloride (Sodium Chloride 0.9% 10 Ml Syringe) 10 ml FLUSH ASDIRECTED PRN PRN Reason: Keep Vein Open Sodium Chloride (Sodium Chloride 0.9% 10 Ml Syringe) 10 ml FLUSH ASDIRECTED PRN PRN Reason: Keep Vein Open Zolpidem Tartrate (Zolpidem 5 Mg Tab) 5 mg PO BEDTIME PRN PRN Reason: Insomnia Discontinued Medications Acetaminophen (Acetaminophen 325 Mg Tab) 650 mg PO Q4H PRN PRN Reason: Pain (Mild 1-3) and fever Ampicillin Sodium (Ampicillin 2 Gm Vial) Confirm Administered Dose 2 gm .ROUTE .STK-MED ONE Stop: 04/12/21 12:16 Last Admin: 04/12/21 16:13 Dose: Not Given Documented by: Epinephrine HCl (Epinephrine 1 Mg/Ml Sdv) Confirm Administered Dose 1 mg .ROUTE .STK-MED ONE Stop: 04/12/21 15:03 Last Admin: 04/12/21 20:16 Dose: Not Given Documented by: Fentanyl (Fentanyl 100 Mcg/2 Ml Sdv) Confirm Administered Dose 100 mcg .ROUTE .STK-MED ONE Stop: 04/12/21 15:03 Last Admin: 04/12/21 20:16 Dose: Not Given Documented by: Lactated Ringer's (Ringers, Lactated) 1,000 mls @ 125 mls/hr IV BOLUS ONE Stop: 04/12/21 19:24 Last Admin: 04/12/21 12:39 Dose: 500 mls/hr Documented by: Penicillin G Potassium 5 (millunits/ Sodium Chloride) 100 mls @ 200 mls/hr IV ONETIME ONE Stop: 04/12/21 11:54 Last Admin: 04/12/21 15:47 Dose: Not Given Documented by: Penicillin G Potassium 3 (millunits/ Sodium Chloride) 100 mls @ 200 mls/hr IV Q4H [place] Ampicillin Sodium 2 gm/ Sodium (Chloride) 100 mls @ 200 mls/hr IV ONETIME ONE Stop: 04/12/21 12:34 Last Admin: 04/12/21 12:39 Dose: 200 mls/hr Documented by: Ampicillin Sodium 1 gm/ Sodium (Chloride) 100 mls @ 200 mls/hr IV Q4H [place] Last Admin: 04/12/21 20:18 Dose: Not Given Documented by: Tranexamic Acid 1,000 mg/ (Sodium Chloride) 110 mls @ 660 mls/hr IV ONETIME PRN PRN Reason: Bleeding Prenat Multivit/[place]/Iron/Folic Ac ( Multivitamin With Calcium/Folic Acid/Iron Tab) 1 each PO DAILY [facility] Sodium Bicarbonate (Sodium Bicarbonate 4.2% 2.5 Meq/5 Ml Sdv) Confirm Administered Dose 2.5 meq .ROUTE .STK-MED ONE Stop: 04/12/21 15:04 Last Admin: 04/12/21 20:17 Dose: Not Given Documented by: Sufentanil Citrate (Sufentanil 50 Mcg/1 Ml Amp) Confirm Administered Dose 50 mcg .ROUTE .STK-MED ONE Stop: 04/12/21 15:03 Last Admin: 04/12/21 20:16 Dose: Not Given Documented by: - Interaction Disposition, : Chase in Room with Family Interaction: Holding Infant Feeding: Attempted ; Nursed Fair/Poor Support Person: Mother - Recovery Exam Fundal Tone: Firm Fundal Level: 1 Fingerbreadths Below Umbilicus Fundal Placement: Midline Lochia Amount: None Perineum Description: Intact, Minimal Bruising/Swelling Episiotomy/Laceration: Approximated Urinary Elimination: Straight Catheterization - Exam General: Alert, Oriented, Cooperative, No Acute Distress HEENT: Pupils Equal, Pupils Reactive, Mucous Membr. Moist/[place] Neck: Supple Lungs: Clear to Auscultation, Normal Respiratory Effort Cardiovascular: Regular Rate, Regular Rhythm, No Murmurs GI/Abdominal Exam: Normal Bowel Sounds, Soft, Non-Tender, No Distention Extremities: Normal Inspection, Normal Range of Motion, Non-Tender, No Pedal Edema Skin: Warm, Dry, Intact Wound/Incisions: Healing Well Neurological: No New Focal Deficit, Normal Gait, Normal Speech, Normal Tone Psy/Mental Status: Alert, Normal Affect, Normal Mood - Problem List Review Problem List Initiated/Reviewed/Updated: Yes - My Orders Last 24 Hours: My Active Orders 04/12/21 Breakfast Regular Diet [DIET] 04/12/21 11:06 OB Check [OM.PC] Click to Edit 04/12/21 11:16 CHLAMYDIA AND GONORRHEA BY TMA Routine CULTURE GROUP B STREP [RM] Routine 04/12/21 11:25 Patient Status [ADT] Routine Communication Order [RC] ASDIRECTED Notify Provider Vital Signs OB [RC] ASDIRECTED Notify Provider [RC] PRN Vital Signs [RC] 08,20 Butorphanol [Stadol] 1 mg IVPUSH Q3H PRN Carboprost Tromethamine [Hemabate DS] 250 mcg IM ASDIRECTED PRN Lidocaine 1% [Xylocaine-MPF 1%] 30 ml INJECT ASDIRECTED PRN Methylergonovine [Methergine] 0.2 mg IM ASDIRECTED PRN Ondansetron [Zofran] 4 mg IVPUSH Q4H PRN Sodium Chloride 0.9% [Saline Flush] 10 ml FLUSH ASDIRECTED PRN Tranexamic Acid [Cyklokapron] 1,000 mg Sodium Chloride 0.9% [Normal Saline] 100 ml IV ONETIME fentaNYL [Sublimaze] 100 mcg IVPUSH Q1H PRN miSOPROStoL [Cytotec] 800 mcg RECTAL ASDIRECTED PRN Saline Lock Insert [OM.PC] Routine Resuscitation Status Routine 04/12/21 11:30 Lactated Ringers [Ringers, Lactated] 1,000 ml IV ASDIRECTED Oxytocin/Normal Saline [Pitocin in NS 30 UNIT/500 ML] 30 unit in 500 ml IV TITRATE 04/12/21 11:55 HBSAG SCREEN [REF] Urgent HEP C VIRUS AB [REF] Urgent RPR (SYPHILIS SERO) W/ RFLX [REF] Routine RUBELLA ANTIBODY, IGG [REF] Routine 04/12/21 Lunch Regular Diet [DIET] 04/12/21 12:20 CULTURE URINE [RM] Routine TRAMADOL, SCREEN ONLY, UR Routine 04/12/21 12:25 Acetaminophen [TylenoL] 650 mg PO Q6H PRN Benzocaine/Menthol [Dermoplast Pain Relief 20%-0.5% [place]] See Dose Instructions TOP Q4H PRN Carboprost Tromethamine [Hemabate DS] 250 mcg IM ASDIRECTED PRN Docusate Sodium [Colace] 100 mg PO BID PRN Ibuprofen [Motrin] 800 mg PO Q8H PRN Simethicone 80 mg PO Q4H PRN Sodium Chloride 0.9% [Saline Flush] 10 ml FLUSH ASDIRECTED PRN Zolpidem [Ambien] 5 mg PO BEDTIME PRN miSOPROStoL [Cytotec] 800 mcg RECTAL ONETIME PRN 04/12/21 12:26 Up ad Jumana [RC] ASDIRECTED Assess Lochia [WOMSER] Per Unit Routine Assess Uterine Involution [WOMSER] Per Unit Routine Breast Pump [WOMSER] Per Unit Routine Ice Therapy [OM.PC] Per Unit Routine Perineal Care [OM.PC] Per Unit Routine Saline Lock Insert [OM.PC] Urgent Sitz Bath [OM.PC] Per Unit Routine 04/12/21 17:00 Ferrous Sulfate 325 mg PO TIDMEALS 04/12/21 Dinner Regular Diet [DIET] 04/13/21 05:11 CBC W/O DIFF,HEMOGRAM [HEME] AM 04/13/21 09:00 Vit with Ca/FA/Iron [ Plus Iron] 1 each PO DAILY - Assessment Assessment:: PPD # 1 S/P Doing well Tolerating diet Issues with bladder emptying post intrathecal - Plan Plan:: Continue present care Encourage to empty bladder Encourage breatfeeding. Will use straight catheter as needed to help empty bladder
[2021-04-13] MEDS: Ibuprofen 800 MG Tab PO PRN ×2 (06:44→20:29)
[2021-04-13] MEDS ORDERED: Prenatal Multivitamin with Calcium/Folic Acid/Iron Tab PO SCH (09:00)
[2021-04-13] MEDS: Prenatal Multivitamin with Calcium/Folic Acid/Iron Tab PO SCH (12:46)
[2021-04-13] MEDS: Ferrous Sulfate 325 MG Tab PO SCH ×3 (12:46→17:11)
[2021-04-13] MEDS: Docusate Sodium 100 MG Cap PO PRN ×2 (12:46→20:29)
[2021-04-14] MEDS: Ibuprofen 800 MG Tab PO PRN (08:23)
[2021-04-14] MEDS: Ferrous Sulfate 325 MG Tab PO SCH ×2 (08:23→15:02)
[2021-04-14] MEDS: Prenatal Multivitamin with Calcium/Folic Acid/Iron Tab PO SCH (08:23)
[2021-04-14] MEDS: Docusate Sodium 100 MG Cap PO PRN (08:23)
[2021-04-14 11:09] VITALS: BP 116/82; PULSE 73
--- NOTE | 2021-04-14 11:35 | PN ---
DATE: 04/14/2021 SUBJECTIVE: The patient has no acute events overnight. She has been ambulating within the room, tolerating a normal diet. Lochia is decreasing. Pain is well controlled. Discussed immediate return of fertility if she resumes sexual intercourse after discharge from the hospital. Encouraged her to schedule followup appointment at [facility] or [facility], whichever is more affordable or best for her. She is medically stable for discharge today. OBJECTIVE: Vitals: Temperature 98.8 Fahrenheit, pulse of 85, blood pressure 128/69, respiratory rate of 20, SpO2 of 100% on room air. HEENT: Head: Atraumatic and normocephalic. EOMs intact. Mucous membranes moist. Lungs: Clear to auscultation bilaterally. No increased work of breathing. Heart: S1 and S2. Regular rate and rhythm. No ectopy or murmur. Abdomen: Soft and nontender. Uterus: Uterine fundus below the umbilicus. No rigidity or guarding. Extremities: No peripheral edema. LABORATORY DATA: Admission hemoglobin 9.2. Hemoglobin on 04/13/2021, 8.4. ASSESSMENT: 1. day #2 status post normal spontaneous vaginal delivery. 2. No care. 3. 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 4. Bottle-feeding. PLAN: 1. Most likely discharge to home today. 2. She has been attentive and caring for within her room. This can continue while she is admitted in hospital. 3. Social Work consult is still pending at this time. 4. We did receive visits from her care at [facility] and shows that she was 37 weeks' gestation on day of delivery. This was not known again until today. [facility] /[id number] DEVYN
[2021-04-14 12:48] LABS: C.TRACHOMATIS BY TMA Negative (Negative); N.GONORRHOEAE BY TMA Negative (Negative)
--- NOTE | 2021-04-16 03:14 | DISCH ---
ADMITTING DIAGNOSES: 1. 20-year-old 2, P1-0-0-1 with intrauterine reported 36 weeks 5 days. 2. No care. 3. Group B Streptococcus unknown with history of positive. DISCHARGE DIAGNOSES: 1. 37-0/7 weeks' intrauterine based on newly obtained records. 2. 2, now P2-0-0-2. 3. No care. 4. Urine drug screen positive for methamphetamine and MDMA. 5. Rubella immune. BRIEF HISTORY: The patient is a 20-year-old G2, P1 with no care. Presented with SROM at 9:49 a.m. AmniSure was positive. [place] showed contractions every 1 to 2 minutes. The patient quickly reached complete dilation with slight Pitocin augmentation. She began pushing at 4:05 p.m. Delivered male infant in LOP, right shoulder anterior position at 4:21 p.m. Section of cord was taken for drug exposure testing. Cord blood collected. Placenta delivered spontaneously intact. 3-vessel cord was confirmed. Two periurethral abrasions and a perineal first-degree laceration were identified and repaired with 4-0 Vicryl using [id number] sutures. Mother and infant were stable at the time of delivery and repair of lacerations. DELIVERY INFORMATION: Male, score of 8/8, weight 2750 g/6 pounds 1 ounce. Length 18.5 inches. Chest 12.25 inches. Head 12.5 inches. Abdomen 12.5 inches. Cord sample sent for drug exposure testing. HOSPITAL COURSE: After delivery, the patient was very attentive to the care of her and spent limited time in the nursery. See progress note from 04/14/2021 for further examination and information from the day of discharge. DISCHARGE DISPOSITION: Good. LABORATORY DATA: Admission hemoglobin 9.2, discharge hemoglobin 8.4. Hepatitis B negative. Hepatitis C antibody negative. HIV nonreactive. Chlamydia and gonorrhea negative. Rubella immune. DISPOSITION: Home. MEDICATION: Continue vitamin. FOLLOWUP: The patient was encouraged to schedule 6-week followup at [facility] or at [facility] if she has referral. INSTRUCTIONS: The patient was strongly encouraged to remain hydrated to prevent incidence of blood clot. She was encouraged to remain in sobriety from drugs on her UDS. If she has any questions or concerns about care of the , she was to call nursery if there were any concerns. All of her questions were answered. HIREN /[id number] DEVYN
== END 2021-04-14 16:40 | disposition home or self-care (01) | DRG 806 ==
LOC: DL.OBCHECK 10:43 → OBSVTOIN 11:25 → DL.OB 11:25 → DL.MS 04-13 11:29
PROVIDERS: ADMIT Obstetrics & Gynecology; ATTEND Obstetrics & Gynecology
PROC: 10E0XZZ Delivery of Products of Conception, External Approach (ICD-10-PCS; principal; 2021-04-12)
PROC: 0HQ9XZZ Repair Perineum Skin, External Approach (ICD-10-PCS; 2021-04-12)
PROC: 3E0R3BZ Introduction of Anesthetic Agent into Spinal Canal, Percutaneous Approach (ICD-10-PCS; 2021-04-12)
PROC: 4A1HXCZ Monitoring of Products of Conception, Cardiac Rate, External Approach (ICD-10-PCS; 2021-04-12)
PROC: 00HU33Z Insertion of Infusion Device into Spinal Canal, Percutaneous Approach (ICD-10-PCS; 2021-04-12)
DX: O60.14X0 Preterm labor third trimester with preterm delivery third trimester, not applicable or unspecified (principal); O99.324 Drug use complicating childbirth; Z37.0 Single live birth; F15.90 Other stimulant use, unspecified, uncomplicated; Z3A.37 37 weeks gestation of pregnancy; O70.0 First degree perineal laceration during delivery; Z20.822 Contact with and (suspected) exposure to COVID-19
CPT/HCPCS: 01967; 36415; 51701; 59409; 76815; 80305-QW; 80307; 81001; 84112; 85027; 86592; 86762; 86803; 86850; 86900; 86901; 87077; 87081; 87086; 87088; 87186; 87210; 87340; 87389; 87491; 87591; A9270-GY; J0171; J0290; J2405; J2590; J3010; J7120; U0002

== ENCOUNTER 2022-03-16 15:30 | Emergency (ER) | payer MEDICAID | END 2022-03-16 17:18 | disposition left against medical advice (07) | LOC: DL.ED 15:30 | DX: Z53.21 Procedure and treatment not carried out due to patient leaving prior to being seen by health care provider (principal) ==

== ENCOUNTER 2023-02-26 21:08 | Emergency (ER) | payer MEDICAID ==
[2023-02-26] MEDS ORDERED: Dexamethasone 4 MG/ML SDV IM ONE (21:40)
[2023-02-26 21:42] VITALS: BP 134/81; PULSE 84
== END 2023-02-26 22:01 | disposition home or self-care (01) ==
LOC: DL.ED 21:08
DX: R09.1 Pleurisy (principal); B34.9 Viral infection, unspecified
CPT/HCPCS: 96372; 99283; J1100